=== PATIENT | male | born 1950 | race Caucasian/White ===

== ENCOUNTER 2017-01-21 00:42 | Emergency (ER) | payer MEDICARE, OTHER ==
[~2017-01-21 00:42] MED LIST: AMARYL PO; ASPIRIN81 M1 PO; ASPIRIN81 MG PO; BLOOD PRESSURE MED PO; CHOLESTEROL MED PO; CLEOCIN150 MG PO; HUMULIN 70100 UNITS/ SQ; K-DUR20 ME2 PO; LASIX PO; LIPITOR20 MG PO; LIPITOR40 MG PO; LISINOPRIL PO; LISINOPRIL20 MG PO; METFORMIN PO; NICOTINE T1 PATCH .2 TOP; NOVOLIN 70/30 V10 M1 SUBQ; NOVOLIN 70/30 V10 ML INJ; NOVOLIN 70100 UNITS/ SUBQ; PRINIVIL20 M1 PO; PROTONIX PO; VEETIDS 500500 M1 PO; VIAGRA PO; VICODIN 5-3001 EACH PO; VOLTAREN75 MG PO
== END 2017-01-21 01:18 | disposition home or self-care (01) ==
LOC: SED 00:42
DX: L02.415 Cutaneous abscess of right lower limb (principal); E11.9 Type 2 diabetes mellitus without complications; E78.5 Hyperlipidemia, unspecified; Z79.4 Long term (current) use of insulin; Z79.82 Long term (current) use of aspirin; Z79.899 Other long term (current) drug therapy
CPT/HCPCS: 87070; 87077; 87186; 87205; 99283

== ENCOUNTER 2017-03-26 11:46 | Emergency (ER) | payer MEDICARE, OTHER ==
--- NOTE | ~2017-03-26 | CR141 ---
[facility] A Service of [facility] & [facility] RADIOLOGY TEXT RESULTS PATIENT: ERIK QURESHI LOCATION: SED : 52 UNIT #: [id number] AGE: [address]: Joselito Pack MD SEX: M ORDER DR: [id number] [place] [id number] E MR#: [id number] Acc #: [id number] NAME: ERIK QURESHI : 1950 SEX: M STUDY DATE/TIME: 03/26/2017 12:06 UNIT: SED ROOM: STUDY DESCRIPTION: CR Hand Min 3 Views Lt Attending Physician: Joselito Pack M.D. Ordering Physician: Joselito Pack M.D. Primary Care Physician: [facility], [facility]. MEDICAL IMAGING REPORT This report is preliminary unless electronic signature is present. EXAM Left hand, 3 views; 03/26/2017 1206 hours. CLINICAL HISTORY 66-year-old man tripped and fell on asphalt one week ago, complaining of left hand and wrist pain since fall. COMPARISON None. FINDINGS AP, lateral and oblique views demonstrate no definite acute fracture in the hand. There is osteoarthritic degenerative change at the first carpometacarpal joint, MCP and DIP joints. IMPRESSION Osteoarthritic degenerative changes. No acute fracture. Dictated by... Keiry Fields M.D. THIS IS AN ELECTRONICALLY VERIFIED REPORT Keiry Fields M.D. at 03/26/2017 7:05 PM Abisai TD: 03/26/2017 18:49 JOB #: [id number] MEDICAL IMAGING REPORT Page 1 of 1
--- NOTE | ~2017-03-26 | CR63 ---
[facility] A Service of [facility] RADIOLOGY TEXT RESULTS PATIENT: ERIK QURESHI LOCATION: SED : 52 UNIT #: [id number] AGE: [address]: Joselito Pack MD SEX: M ORDER DR: [id number] [place] [address] [id number] E MR#: [id number] Acc #: [id number] NAME: ERIK QURESHI : 1950 SEX: M STUDY DATE/TIME: 03/26/2017 12:06 UNIT: SED ROOM: STUDY DESCRIPTION: CR Chest 2 View Attending Physician: Joselito Pack M.D. Ordering Physician: Joselito Pack M.D. Primary Care Physician: [facility], [facility]. MEDICAL IMAGING REPORT This report is preliminary unless electronic signature is present. EXAM Chest 2 views 03/26/2017 1206 hours HISTORY Patient tripped and fell 1 week ago. Patient complains of right chest pain, right rib pain in the mid to lower anterior ribs since fall. COMPARISON 09/01/2012 chest film FINDINGS Upright PA and 2 lateral views demonstrate very low lung volumes. Cardiac silhouette is enlarged relative to the prior study likely exaggerated by the low lung volumes. The aorta is tortuous and more prominent than on the prior exam. There is pulmonary venous distension without definite edema, pneumonia, effusion or pneumothorax. IMPRESSION 1. Low lung volume film with increase in size of the cardiac silhouette and more prominence of the aorta since 09/01/2012. These findings may be exaggerated by the very low lung volumes. 2. No acute pulmonary or pleural findings. No definite fracture is seen. Dictated by... Keiry Fields M.D. THIS IS AN ELECTRONICALLY VERIFIED REPORT Keiry Fields M.D. at 03/26/2017 7:05 PM LIDIA/keithr TD: 03/26/2017 18:42 JOB #: [id number] [facility] A Service of [facility] RADIOLOGY TEXT RESULTS PATIENT: ERIK QURESHI [id number] [birth year] UNIT #: [id number] AGE: [address]: Joselito Pack MD SEX: M ORDER DR: MEDICAL IMAGING REPORT Page 1 of 1
--- NOTE | ~2017-03-26 | CR281 ---
[facility] A Service [facility] RADIOLOGY TEXT RESULTS PATIENT: ERIK QURESHI LOCATION: SED : 52 UNIT #: [id number] AGE: [address]: Joselito Pack MD SEX: M ORDER DR: [id number] [place] [address] [id number] E MR#: [id number] Acc #: [id number] NAME: ERIK QURESIH : 1950 SEX: M STUDY DATE/TIME: 03/26/2017 12:06 UNIT: SED ROOM: STUDY DESCRIPTION: CR Wrist Min 3 View Lt Attending Physician: Joselito Pack M.D. Ordering Physician: Joselito Pack M.D. Primary Care Physician: [facility], [facility]. MEDICAL IMAGING REPORT This report is preliminary unless electronic signature is present. EXAM Left wrist 3 views 03/26/2017 1206 hours HISTORY Patient tripped and fell on asphalt 1 week ago with wrist and hand pain since fall. COMPARISON None. FINDINGS AP, lateral and oblique views demonstrate no fracture of the distal radius or ulna. Carpal bones demonstrate no fracture. There is joint space loss and spurring at the first carpometacarpal joint consistent with osteoarthritis. There are small lucencies in the lunate likely small bone cysts. IMPRESSION 1. No fracture or dislocation. 2. Osteoarthritis at the first carpometacarpal joint. 3. Small rounded lucencies seen in the lunate likely represent benign bone cysts. Dictated by... Keiry Fields M.D. THIS IS AN ELECTRONICALLY VERIFIED REPORT Keiry Fields M.D. at 03/27/2017 9:16 AM LIDIA/manuel TD: 03/26/2017 19:03 [facility] A Service [facility] RADIOLOGY TEXT RESULTS PATIENT: ERIK QURESHI LOCATION: SED : 51 UNIT #: [id number] AGE: [address]: Joselito Pack MD SEX: M ORDER DR: JOB #: [id number] MEDICAL IMAGING REPORT Page 1 of 1
--- NOTE | ~2017-03-26 | CR213 ---
[facility]. [facility] A Service of [facility] & [facility] RADIOLOGY TEXT RESULTS PATIENT: ERIK QURESHI LOCATION: SED : 52 UNIT #: [id number] AGE: [address]: Joselito Pack MD SEX: M ORDER DR: [id number] [place] [address] [id number] E MR#: [id number] Acc #: [id number] NAME: ERIK QURESHI : 1950 SEX: M STUDY DATE/TIME: 03/26/2017 12:06 UNIT: SED ROOM: STUDY DESCRIPTION: CR Ribs Unilateral 2 View Rt Attending Physician: Joselito Pack M.D. Ordering Physician: Joselito Pack M.D. Primary Care Physician: [facility]. MEDICAL IMAGING REPORT This report is preliminary unless electronic signature is present. EXAM Right ribs 03/26/2017 1206 hours HISTORY Patient tripped and fell on asphalt 1 week ago. Patient complains of mid and lower anterior rib pain on the right. COMPARISON Chest film 01/25/2009 and 09/01/2012 FINDINGS AP and oblique views of the right ribs demonstrate mildly displaced anterior right sixth and seventh rib fractures near the costochondral junctions. These appear acute to subacute. IMPRESSION There are acute to subacute anterior sixth and seventh rib fractures. There may be some early callous formation. There is slight angulation. There is no pleural effusion or pneumothorax. Dictated by... Keiry Fields M.D. THIS IS AN ELECTRONICALLY VERIFIED REPORT Keiry Fields M.D. at 03/26/2017 7:05 PM LIDIA/manuel TD: 03/26/2017 19:01 JOB #: [id number] MEDICAL IMAGING REPORT Page 1 of 1
== END 2017-03-26 14:16 | disposition home or self-care (01) ==
LOC: SED 11:46
DX: S22.41XA Multiple fractures of ribs, right side, initial encounter for closed fracture (principal); S63.502A Unspecified sprain of left wrist, initial encounter; I10 Essential (primary) hypertension; Z79.899 Other long term (current) drug therapy; W01.0XXA Fall on same level from slipping, tripping and stumbling without subsequent striking against object, initial encounter; Y92.009 Unspecified place in unspecified non-institutional (private) residence as the place of occurrence of the external cause
CPT/HCPCS: 29125; 71020; 71100; 73110; 73130; 96372; 99283